=== PATIENT | female | born 1975 | race Caucasian/White ===

== ENCOUNTER 2022-08-21 10:50 | Outpatient (CLI) | payer MEDICAID, SELFPAY | END 2022-08-21 10:51 | disposition home or self-care (01) | PROVIDERS: PCP Family Medicine; Visit Provider Registered Nurse | DX: Z01.419 Encounter for gynecological examination (general) (routine) without abnormal findings (principal); R53.83 Other fatigue; R63.8 Other symptoms and signs concerning food and fluid intake; R73.03 Prediabetes; I10 Essential (primary) hypertension; E66.01 Morbid (severe) obesity due to excess calories | CPT/HCPCS: 84439; 84443; 87624; 88175 ==

== ENCOUNTER 2022-10-20 17:13 | Emergency (ER) | payer BC, SELFPAY ==
[2022-10-20 17:20] VITALS: BP 157/101; PULSE 83; RESP 18; TEMP 36.2; O2SAT 97; BMI 40.2
--- NOTE | 2022-10-20 17:37 | ED.GENADULT ---
HPI - General Adult General Time Seen by Provider: 17:37 Date Seen: 10/20/22 Chief complaint: Back Injury/Pain Stated complaint: Severe Pain in Upper Left Back Time Seen by Provider: 10/20/22 17:32 Source: patient and RN notes reviewed Mode of arrival: ambulatory Limitations: no limitations History of Present Illness HPI narrative: Patient is a 47-year-old female coming in with recurrent episodic left lower interscapular back pain. She actually left work today. 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 She actually left work today. When asked what would happen if I gave her child to hold in that arm for 5 minutes, she states she would get sharp pain in that specific area. It is been increased overnight. Last night she slept propped up a little bit. Movement hurts it. Deep breathing will hurt but it is outside the lung she feels. It is that chest wall area. It is not hurting inside with breathing. The active breathing hurts in that muscle area. She tried some tizanidine last night it did not help. She has taken some NSAIDs periodically, nothing consistent. She is not aware of any specific traumatic event that started this. She has high blood pressure, hypothyroidism. Her medication list is reviewed. When question about worries she has, any research she has done, she relays that she admits it worries her about an uncle that it had a blood cancer. He kept going in with type of pain and could not be figured out. He was eventually found to have a blood cancer. Related Data Home Medications Medication Instructions Recorded Confirmed cholecalciferol (vitamin D3) 25 1,000 unit PO DAILY 09/18/22 09/18/22 mcg (1,000 unit) capsule ferrous gluconate 324 mg (38 mg 324 mg PO DAILY 09/18/22 09/18/22 iron) tablet multivitamin (Daily Multi-Vitamin 1 tab PO QDAY 09/19/22 09/19/22 tablet) Previous Rx's Medication Instructions Recorded amlodipine 5 mg tablet 5 mg PO QDAY #90 tabs 09/19/22 levothyroxine 25 mcg tablet 25 mcg PO QDAY #90 tabs 09/19/22 (Synthroid) lisinopril 10 1 tab PO QDAY #90 tabs 09/19/22 mg-hydrochlorothiazide 12.5 mg tablet Allergies Allergy/AdvReac Type Severity Reaction Status Date / Time No Known Drug Allergies Allergy Verified 09/19/22 08:42 [facility] Medical History (Updated 10/20/22 @ 20:22 by Claire Sinclair MD) Acute gallstone pancreatitis Cyst of left ovary History of anemia (2015) History of gestational diabetes mellitus (GDM) History of herpes genitalis Hypertension Hypothyroidism Morbid obesity Sialolithiasis Urge incontinence of urine Surgical History History of 3 sections History of knee surgery (1995) History of tubal ligation (2015) Status post laparoscopic cholecystectomy (04/2018) Family History Father High blood pressure Family/Other Diabetes Social History Smoking Status: Never smoker Little interest or pleasure in doing things: several days Feeling down, depressed, or hopeless: not at all service: No Exam Const: Vital Signs, click to edit/add: Vital Signs - 24 hr 10/20/22 17:20 Temperature 97.1 F L Pulse Rate [Right Pulse Oximeter] 83 Respiratory Rate 18 Blood Pressure [Ri ght Upper Arm] 157/101 H Pulse Oximetry 97 Oxygen Delivery Me thod Room Air Course Vital Signs Vital signs: Initial Vital Signs Temperature 97.1 F L 10/20/22 17:20 Temperature Source Temporal Artery Scan 10/20/22 17:20 Pulse Rate 83 10/20/22 17:20 Respiratory Rate 18 10/20/22 17:20 Blood Pressure 157/101 H 10/20/22 17:20 Blood Pressure Mean 119 10/20/22 17:20 Blood Pressure Position Sitting 10/20/22 17:20 Pulse Oximetry 97 10/20/22 17:20 Oxygen Delivery Method 10/20/22 17:20 Vital Signs Temperature 97.1 F L 10/20/22 17:20 Pulse Rate 83 10/20/22 17:20 Respiratory Rate 18 10/20/22 17:20 Blood Pressure 157/101 H 10/20/22 17:20 Pulse Oximetry 97 10/20/22 17:20 Oxygen Delivery Method 10/20/22 17:20 Temperature 97.1 F L 10/20/22 17:20 Pulse Rate 83 10/20/22 17:20 Respiratory Rate 18 10/20/22 17:20 Blood Pressure 157/101 H 10/20/22 17:20 Pulse Oximetry 97 10/20/22 17:20 Oxygen Delivery Method 10/20/22 17:20 Medical Decision Making Lab Data Lab results reviewed: Yes I reviewed the patient's lab results Labs: Lab Results 10/20/22 10/20/22 10/20/22 Range/Units 18:22 18:22 18:22 WBC 8.52 (4.50-11.00) K/uL RBC 4.25 (4.00-5.20) m/uL Hgb 13.0 (12.0-16.0) gm/dL Hct 37.9 (33.0-51.0) % MCV 89 (80-100) fL MCH 31 (26-34) pg MCHC 34 (32-36) gm/dL RDW Coeff of Dylan 11.7 (11.5-15.5) % Plt Count 237 (140-440) K/uL Neut % (Auto) 63.7 (42.0-72.0) % Lymph % (Auto) 24.9 (20-44) % [place] % (Auto) 8.2 (0.0-11.0) % Eos % (Auto) 2.6 (0.0-7.0) % Baso % (Auto) 0.5 (0.0-3.0) % Neut # (Auto) 5.43 (1.7-7.0) K/uL Lymph # (Auto) 2.12 (0.90-2.90) K/uL [place] # (Auto) 0.70 (0.00-0.90) K/UL Eos # (Auto) 0.22 (0.00-0.50) K/uL Baso # (Auto) 0.04 (0.00-0.30) K/uL Sodium 138 (135-149) mmol/L Potassium 3.9 (3.6-5.1) mmol/L Chloride 102 (96-114) mmol/L Carbon Dioxide 29 (20-32) mmol/L BUN 27 H (5-24) mg/dL Creatinine 0.7 (0.5-1.5) mg/dL Estimated Creat Clear 86.72 Estimated GFR 108 ml/min Glucose 106 (60-115) mg/dL Lactate (0.5-1.9) mmol/L Calcium 9.3 (8.4-10.6) mg/dL Total Bilirubin 0.5 (0.1-1.5) mg/dL AST 22 (12-35) U/L ALT 22 (4-35) U/L Alkaline Phosphatase 95 (40-150) U/L Total Creatine Kinase 69 (41-117) U/L C-Reactive Protein 3.1 H (0.5-1.0) mg/dL Total Protein 7.9 (6.0-8.3) g/dL Albumin 4.6 (3.3-5.0) g/dL 10/20/22 Range/Units 18:22 WBC (4.50-11.00) K/uL RBC (4.00-5.20) m/uL Hgb (12.0-16.0) gm/dL Hct (33.0-51.0) % MCV (80-100) fL MCH (26-34) pg MCHC (32-36) gm/dL RDW Coeff of Dylan (11.5-15.5) % Plt Count (140-440) K/uL Neut % (Auto) (42.0-72.0) % Lymph % (Auto) (20-44) % [place] % (Auto) (0.0-11.0) % Eos % (Auto) (0.0-7.0) % Baso % (Auto) (0.0-3.0) % Neut # (Auto) (1.7-7.0) K/uL Lymph # (Auto) (0.90-2.90) K/uL [place] # (Auto) (0.00-0.90) K/UL Eos # (Auto) (0.00-0.50) K/uL Baso # (Auto) (0.00-0.30) K/uL Sodium (135-149) mmol/L Potassium (3.6-5.1) mmol/L Chloride (96-114) mmol/L Carbon Dioxide (20-32) mmol/L BUN (5-24) mg/dL Creatinine (0.5-1.5) mg/dL Estimated Creat Clear Estimated GFR ml/min Glucose (60-115) mg/dL Lactate 0.4 L (0.5-1.9) mmol/L Calcium (8.4-10.6) mg/dL Total Bilirubin (0.1-1.5) mg/dL AST (12-35) U/L ALT (4-35) U/L Alkaline Phosphatase (40-150) U/L Total Creatine Kinase (41-117) U/L C-Reactive Protein (0.5-1.0) mg/dL Total Protein (6.0-8.3) g/dL Albumin (3.3-5.0) g/dL Imaging Data Chest x-ray: Attestation: I have reviewed the pertinent imaging results. My impression: I do not see any acute cardiopulmonary pathology, no bony pathology on my review of this chest x-ray. Radiologist's impression: Patient: ARUN TROTTER Facility:?[facility] Patient ID:?[id number] Site Patient ID:?[id number]. Site :?[id number] Study:?XRay Chest 2V-10/20/2022 6:12:41 PM Ordering Physician:?Yahir Rangel Final Report: INDICATION: Left back pain, interscapular. TECHNIQUE: Chest 2 views. COMPARISON: None. FINDINGS: Lungs: Clear lungs. No consolidation. Pleura: No pleural effusion or pneumothorax. Heart and Mediastinum: The cardiomediastinal silhouette is normal. The vessels are unremarkable. Bones: Unremarkable. IMPRESSION: No acute cardiopulmonary disease. Dictated by Cliff Coyle MD @ 10/20/2022 6:17:41 PM (Electronic Signature) Critical Care Time Critical Care Time Critical Care Time: No Discharge Plan Discharge Clinical Impression: Pain of left scapula Patient Disposition: Home, Self-Care Condition: Stable Instructions: Thoracic Pain (ED) Additional Instructions: Your pain seems to be along the lower aspect of the scapula in the interscapular area. I believe this to be musculoskeletal in nature. You can try ice or heat, use which works better for you. Take the Toradol as prescribed, can use the Flexeril as needed. You may need more than 1 dose to say that it is or isn't working. Can supplement with Tylenol as needed while you are on the Toradol. I have provided a referral for physical therapy that you should consider using. I have also written a note to be off work if needed. I request that you follow-up in clinic, consider seeing your primary in [place] if needed in the next few days. Activity Level: Activity as Tolerated Prescriptions: No Action ferrous gluconate 324 mg (38 mg iron) tablet 324 mg PO DAILY cholecalciferol (vitamin D3) 25 mcg (1,000 unit) capsule 1,000 unit PO DAILY multivitamin [Daily Multi-Vitamin] Tablet 1 tab PO QDAY lisinopril-hydrochlorothiazide 10-12.5 mg tablet 1 tab PO QDAY Qty: 90 0RF amlodipine 5 mg tablet 5 mg PO QDAY Qty: 90 0RF levothyroxine [Synthroid] 25 mcg tablet 25 mcg PO QDAY Qty: 90 0RF Follow Up/Referrals: Daniele Hernandez MD [Primary Care Provider] - Stand Alone Forms: [employer] Info Instructions
--- NOTE | 2022-10-20 17:57 | CRLHL7_ITS ---
For Patients: As a result of the Cures Act, medical imaging exams and procedure reports are released immediately into your electronic medical record. You may view this report before your referring provider. If you have questions, please contact your health care provider. INDICATION: Left back pain, interscapular. TECHNIQUE: Chest 2 views. COMPARISON: None. FINDINGS: Lungs: Clear lungs. No consolidation. Pleura: No pleural effusion or pneumothorax. Heart and Mediastinum: The cardiomediastinal silhouette is normal. The vessels are unremarkable. Bones: Unremarkable. IMPRESSION: No acute cardiopulmonary disease. Dictated by Cliff Coyle MD @ 10/20/2022 6:17:41 PM (Electronically Signed)
[2022-10-20 18:32] LABS: Basophils Percent Auto 0.5 % (0.0-3.0); Eosinophils Percent Auto 2.6 % (0.0-7.0); Hematocrit 37.9 % (33.0-51.0); Immature Granulocytes Pct Auto 0.1 %; Lactate* 0.4 mmol/L (0.5-1.9); Lymphocytes Percent Auto 24.9 % (20-44); Mean Corpuscular HGB Conc 34 gm/dL (32-36); Mean Corpuscular Hemoglobin 31 pg (26-34); Mean Corpuscular Volume 89 fL (80-100); Monocytes Percent Auto 8.2 % (0.0-11.0); Neutrophils Absolute Auto 5.43 K/uL (1.7-7.0); Neutrophils Percent Auto 63.7 % (42.0-72.0); Platelet Count* 237 K/uL (140-440); RDW Coefficient of Variation % 11.7 % (11.5-15.5); Red Blood Count 4.25 m/uL (4.00-5.20); White Blood Count* 8.52 K/uL (4.50-11.00)
[2022-10-20 18:33] LABS: Basophils Absolute Auto 0.04 K/uL (0.00-0.30); Eosinophils Absolute Auto 0.22 K/uL (0.00-0.50); Immature Granulocytes Abs Auto 0.01 K/uL (0.00-0.30); Lymphocytes Absolute Auto 2.12 K/uL (0.90-2.90)
[2022-10-20 18:35] LABS: Slide Review Reflex No
[2022-10-20 18:48] LABS: Albumin* 4.6 g/dL (3.3-5.0); Chloride* 102 mmol/L (96-114)
[2022-10-20 18:49] LABS: Potassium* 3.9 mmol/L (3.6-5.1); Sodium* 138 mmol/L (135-149)
[2022-10-20 18:51] LABS: Alkaline Phosphatase* 95 U/L (40-150); Aspartate Amino Transferase* 22 U/L (12-35); Bilirubin Total* 0.5 mg/dL (0.1-1.5); Carbon Dioxide* 29 mmol/L (20-32); Creatinine* 0.7 mg/dL (0.5-1.5); Est. Creatinine Clearance* 86.72; Estimated Glomerular Filt Rate 108 ml/min; Total Protein* 7.9 g/dL (6.0-8.3)
[2022-10-20 18:52] LABS: Alanine Aminotransferase* 22 U/L (4-35); Blood Urea Nitrogen* 27 mg/dL (5-24); Calcium* 9.3 mg/dL (8.4-10.6); Glucose* 106 mg/dL (60-115)
[2022-10-20 18:54] LABS: C Reactive Protein* 3.1 mg/dL (0.5-1.0)
[2022-10-20] MEDS: KETOROLAC 30 MG/ML inj IM (19:24)
[2022-10-20 19:26] LABS: Creatine Kinase* 69 U/L (41-117)
== END 2022-10-20 20:39 | disposition home or self-care (01) ==
PROVIDERS: Emergency Provider Family Medicine; PCP Family Medicine
DX: M25.512 Pain in left shoulder (principal)
CPT/HCPCS: 36415; 71046; 80053; 82550; 83605; 85025; 86140; 96372; 99284; J1885

== ENCOUNTER 2022-11-12 07:58 | Outpatient (CLI) | payer BC, SELFPAY ==
--- NOTE | 2022-11-12 08:15 | CRLHL7_ITS ---
For Patients: As a result of the Century Cures Act, medical imaging exams and procedure reports are released immediately into your electronic medical record. You may view this report before your referring provider. If you have questions, please contact your health care provider. BILATERAL SCREENING MAMMOGRAM WITH COMPUTER-AIDED DETECTION TECHNIQUE: CC and MLO views were obtained. These mammographic images have been obtained using full-field digital technique. These mammographic images were interpreted with the benefit of computer-aided detection. COMPARISON FILM: 05/30/19. FINDINGS: There are scattered areas of fibroglandular density IMPRESSION: There is no radiographic evidence for malignancy. ASSESSMENT: BI-RADS Category 1: Negative RECOMMENDATION: Routine screening mammogram in 1 year. A lay language report of this examination will be provided to the patient. Daniele Ho M.D. Diagnostic Radiologist [email or web address] Transcribed: 3:44 p.mRoddy valenzuela/Dictated by: Daniele Ho MD @ 11/12/2022 9:56:00 AM (Electronically Signed)
== END 2022-11-12 07:59 | disposition home or self-care (01) ==
LOC: MAMMO 08:00
PROVIDERS: PCP Family Medicine; Visit Provider Registered Nurse
DX: Z12.31 Encounter for screening mammogram for malignant neoplasm of breast (principal)
CPT/HCPCS: 77063; 77067

== ENCOUNTER 2023-01-09 08:58 | Outpatient (CLI) | payer BC, SELFPAY | END 2023-01-09 08:59 | disposition home or self-care (01) | PROVIDERS: PCP Family Medicine; Visit Provider Family Medicine | DX: I10 Essential (primary) hypertension (principal); R53.83 Other fatigue; E66.01 Morbid (severe) obesity due to excess calories; E16.1 Other hypoglycemia; E03.9 Hypothyroidism, unspecified; F32.9 Major depressive disorder, single episode, unspecified | CPT/HCPCS: 80048; 84443 ==

== ENCOUNTER 2023-05-22 09:32 | Outpatient (CLI) | payer BC, SELFPAY | END 2023-05-22 09:33 | disposition home or self-care (01) | PROVIDERS: PCP Family Medicine; Visit Provider Family Medicine | DX: N91.2 Amenorrhea, unspecified (principal); E55.9 Vitamin D deficiency, unspecified; E66.01 Morbid (severe) obesity due to excess calories; I10 Essential (primary) hypertension; R53.83 Other fatigue; E16.1 Other hypoglycemia | CPT/HCPCS: 80048; 82306; 83001; 83002; 84443 ==

== ENCOUNTER 2023-09-09 12:24 | Outpatient (CLI) | payer BC, SELFPAY | END 2023-09-09 12:25 | disposition home or self-care (01) | LOC: NFLDREF 09-10 09:24 | PROVIDERS: PCP Family Medicine; Referring Provider Family Medicine; Visit Provider Nurse Practitioner Family | DX: R30.0 Dysuria (principal); H92.01 Otalgia, right ear; R39.15 Urgency of urination | CPT/HCPCS: 87086; 87186 ==

== ENCOUNTER 2024-03-11 21:02 | Emergency (ER) | payer OTHER, SELFPAY ==
[2024-03-11 21:12] VITALS: BP 134/87; PULSE 78; RESP 18; TEMP 36.7; O2SAT 98; BMI 42.5
--- NOTE | 2024-03-11 21:27 | ED.GENADULT ---
HPI - General Adult General Chief complaint: Extremity Pain/Injury, Lower Stated complaint: groin pain Time Seen by Provider: 03/11/24 21:19 History of Present Illness HPI narrative: Patient is a 48-year-old woman comes in today with chronic pain in the right hip . The pain is in the right hip joint with radiation down the anterior thigh. She has had no fevers no chills no night sweats no recent injuries. She was seen in her primary care office earlier in the week and had an x-ray showing osteoarthritis of the right hip. She is placed on diclofenac with limited effect. Other significant symptoms no signs of septic joint. Related Data Home Medications Medication Instructions Recorded Confirmed cholecalciferol (vitamin D3) 25 1,000 unit PO DAILY 09/18/22 03/11/24 mcg (1,000 unit) capsule escitalopram oxalate 10 mg tablet 10 mg PO DAILY 03/11/24 03/11/24 Previous Rx's Medication Instructions Recorded amlodipine 5 mg tablet 5 mg PO QDAY #90 tabs 02/19/24 bupropion HCl 150 mg 24 hr tablet, 150 mg PO QAM #14 tabs 02/19/24 extended release (Wellbutrin XL) bupropion HCl 300 mg 24 hr tablet, 300 mg PO QAM #30 tabs 02/19/24 extended release (Wellbutrin XL) diclofenac sodium 75 mg 75 mg PO BID #60 tabs 02/19/24 tablet,delayed release lisinopril 10 1 tab PO QDAY #90 tabs 02/19/24 mg-hydrochlorothiazide 12.5 mg tablet semaglutide (weight loss) 0.25 0.25 mg (0.5 mL) subcut QWEEK #2 mL 02/19/24 mg/0.5 mL subcutaneous pen injector (Wegovy) Allergies Allergy/AdvReac Type Severity Reaction Status Date / Time No Known Drug Allergies Allergy Verified 03/11/24 21:16 [facility] Medical History (Updated 03/11/24 @ 21:34 by Adam Blandon MD) Primary hypertension ?I10 - Essential (primary) hypertension (ICD-10) Keratoconus ?H18.609 - Keratoconus, unspecified, unspecified eye (ICD-10) Post menopausal syndrome ?N95.1 - Menopausal and female climacteric states (ICD-10) Vitamin D deficiency ?E55.9 - Vitamin D deficiency, unspecified (ICD-10) Major depression, single episode ?F32.9 - Major depressive disorder, single episode, unspecified (ICD-10) Urge incontinence of urine ?N39.41 - Urge incontinence (ICD-10) Sialolithiasis ?K11.5 - Sialolithiasis (ICD-10) Morbid obesity ?E66.01 - Morbid (severe) obesity due to excess calories (ICD-10) Hyperinsulinism (2011) ?E16.1 - Other hypoglycemia (ICD-10) History of herpes genitalis ?Z86.19 - Personal history of other infectious and parasitic diseases (ICD-10) History of gestational diabetes mellitus (GDM) ?Z86.32 - Personal history of gestational diabetes (ICD-10) Cyst of left ovary ?N83.202 - Unspecified ovarian cyst, left side (ICD-10) Acute gallstone pancreatitis ?K85.10 - Biliary acute pancreatitis without necrosis or infection (ICD-10) Surgical History Status post laparoscopic cholecystectomy (04/2018) ?Z90.49 - Acquired absence of other specified parts of digestive tract (ICD-10) History of tubal ligation (2015) ?Z98.51 - Tubal ligation status (ICD-10) History of knee surgery (1995) ?Z98.890 - Other specified postprocedural states (ICD-10) History of 3 sections ?Z98.891 - History of uterine scar from previous surgery (ICD-10) Family History Father High blood pressure Family/Other Diabetes Social History (Updated 01/11/23 @ 13:01 by Daniele Hernandez MD) Narrative: Lives with boyfriend of four years, they have a total of seven children between them. business and marketing teacher. Nonsmoker. Smoking Status: Never smoker Do you use any of these nicotine containing products: None Second hand tobacco smoke exposure: No How often do you have a drink containing alcohol: 2-3 times a week AUDIT-C Alcohol total score: 3 Non-prescribed substance use: marijuana (any form) Little interest or pleasure in doing things: more than half the days Feeling down, depressed, or hopeless: more than half the days service: No Exam Narrative: Exam Narrative: EXAM GENERAL: Patient appears comfortable and well. EYES: No scleral icterus. LYMPH: No supraclavicular or cervical lymphadenopathy. SKIN: Visible skin seen during exam normal or with benign process only. EXT: No dependent lower extremity pedal edema. Tenderness to palpation noted in the right anterior hip no signs of HEART: Regular rate and rhythm with no murmurs, rubs, or gallops. LUNGS: Clear to auscultation bilaterally with no crackles or wheezes. ABD: Soft, non tender, non distended. PSYCH: Good eye contact, speech is not pressured. Const: Vital Signs, click to edit/add: Vital Signs - 24 hr 03/11/24 21:12 Temperature 98.0 F Pulse Rate [Pulse Oximeter] 78 Respiratory Rate 18 Blood Pressure [Ri t Upper Arm] 134/87 Pulse Oximetry 98 Oxygen Delivery Me thod Room Air Course Course ED Course: Patient seen Andexamined. Vital Signs Vital signs: Initial Vital Signs Temperature 98.0 F 03/11/24 21:12 Temperature Source Temporal Artery Scan 03/11/24 21:12 Pulse Rate 78 03/11/24 21:12 Respiratory Rate 18 03/11/24 21:12 Blood Pressure 134/87 03/11/24 21:12 Blood Pressure Mean 102 03/11/24 21:12 Blood Pressure Position Sitting 03/11/24 21:12 Pulse Oximetry 98 03/11/24 21:12 Oxygen Delivery Method Room Air 03/11/24 21:12 Vital Signs Temperature 98.0 F 03/11/24 21:12 Pulse Rate 78 03/11/24 21:12 Respiratory Rate 18 03/11/24 21:12 Blood Pressure 134/87 03/11/24 21:12 Pulse Oximetry 98 03/11/24 21:12 Oxygen Delivery Method Room Air 03/11/24 21:12 Temperature 98.0 F 03/11/24 21:12 Pulse Rate 78 03/11/24 21:12 Respiratory Rate 18 03/11/24 21:12 Blood Pressure 134/87 03/11/24 21:12 Pulse Oximetry 98 03/11/24 21:12 Oxygen Delivery Method Room Air 03/11/24 21:12 Medical Decision Making MDM Narrative Medical decision making narrative: patient is a 48-year-old woman comes in today with right hip pain x-ray previously has shown osteoarthritis. I do think her mood symptoms are most consistent with femoral nerve impingement. Did place her on 5 day course of prednisone to give her 30 mg of IM Toradol. I recommend symptomatic treatment follow-up with her primary physician other considerations would be femoral hernia avascular necrosis of the right hip labral tear. I did recommend repeat follow-up with possible MR versus CT if symptoms persist. Discharge Plan Discharge Clinical Impression: Acute hip pain Patient Disposition: Home, Self-Care Condition: Stable Instructions: Hip Pain (ED) Additional Instructions: ice Tylenol prednisone as directed follow-up with your doctor next week. Activity Level: No Restrictions Discharge Diet: Regular Prescriptions: No Action cholecalciferol (vitamin D3) 25 mcg (1,000 unit) capsule 1,000 unit PO DAILY amlodipine 5 mg tablet 5 mg PO QDAY Qty: 90 3RF lisinopril-hydrochlorothiazide 10-12.5 mg tablet 1 tab PO QDAY Qty: 90 3RF bupropion HCl [Wellbutrin XL] 150 mg tablet extended release 24 hr 150 mg PO QAM Qty: 14 0RF bupropion HCl [Wellbutrin XL] 300 mg tablet extended release 24 hr 300 mg PO QAM Qty: 30 0RF diclofenac sodium 75 mg tablet,delayed release (DR/EC) 75 mg PO BID Qty: 60 2RF Wegovy 0.25 mg/0.5 mL pen injector 0.25 mg subcut QWEEK Qty: 2 0RF Hold Instructions: Not taking yet Rx Instructions: administer weeks 1 through 4 of therapy escitalopram oxalate 10 mg tablet 10 mg PO DAILY Follow Up/Referrals: Daniele Hernandez MD [Primary Care Provider] - Stand Alone Forms: [employer] Info Instructions
[2024-03-11] MEDS: KETOROLAC 30 MG/ML inj IM (21:38)
[2024-03-11 21:49] VITALS: BP 135/83; PULSE 80; RESP 16; TEMP 36.7
== END 2024-03-11 21:49 | disposition home or self-care (01) ==
LOC: ED 21:41
PROVIDERS: Emergency Provider Internal Medicine; PCP Family Medicine
DX: M25.551 Pain in right hip (principal)
CPT/HCPCS: 96372; 99283; 99284; J1885

== ENCOUNTER 2024-05-16 05:11 | Emergency (ER) | payer OTHER, MEDICAID, SELFPAY ==
[2024-05-16 05:22] VITALS: BP 138/112; PULSE 75; RESP 16; TEMP 36.4; O2SAT 96; BMI 40.0
--- NOTE | 2024-05-16 05:50 | CRLHL7_ITS ---
For Patients: As a result of the Century Cures Act, medical imaging exams and procedure reports are released immediately into your electronic medical record. You may view this report before your referring provider. If you have questions, please contact your health care provider. Indication: Suspect femoroacetabular impingement. Technique: AP view of the pelvis and 2 view(s) of the right hip. Comparison: 02/19/2024. Findings: Hip alignment is anatomic. There is mild right superior hip joint space narrowing . No acute fracture is identified. Decreased femoral head neck junction offset on Edwards view. Additionally, there is mild crossover sign on the right suggesting superior acetabular retroversion. Mild subchondral irregularity of the right sacroiliac joint. Visualized lower lumbar spine demonstrates mild facet arthropathy. Impression: 1. No acute fracture. 2. Decreased right femoral head neck junction offset, which can be seen in the setting of cam type femoroacetabular impingement. Additionally, there is suggestion of right superior acetabular retroversion. Right hip joint space narrowing is present. 3. Irregularity of the right sacroiliac joint may be projectional versus right sacroiliitis. Recommend dedicated sacroiliac joint radiographs. Dictated by Nenita Wells MD @ 05/16/2024 6:22:45 AM (Electronically Signed)
--- NOTE | 2024-05-16 05:55 | ED.GENADULT ---
HPI - General Adult General Chief complaint: Extremity Pain/Injury, Lower Stated complaint: RT hip thigh pain Time Seen by Provider: 05/16/24 05:29 Source: patient Mode of arrival: ambulatory Limitations: no limitations History of Present Illness HPI narrative: 49-year-old female presents in the wee hours to the emergency department with a 4 month history of right hip pain. She did have this evaluated as an add on with multiple other complaints by her primary care provider at her annual physical in January. It looks like x-rays were performed. This did show some mild arthritis changes. She was prescribed anti-inflammatory and was recommended to start physical therapy which she reports she has not been able to do as it was cost prohibitive. She states that she was then evaluated in the emergency department about a month later and was told that it was a ?pinched nerve?. She does admit that the pain does somewhat migrate. At that time she was given a shot of Toradol and was prescribed prednisone which she states did not help at all. She claims that the prednisone did not help but then states that the pain was better for quite a few weeks until this weekend. There was no specific trauma or injury but she states that the pain has been more bothersome over the past few days. She has been using NSAIDs with inadequate relief and reports that she did not sleep well last night. She has not been in contact with her primary care provider again for further direction. No prior injection, no advanced imaging. Reports pain is in the groin area, radiates down to the right thigh somewhat. She also has some pain in the right SI/posterior hip area. It is worse with weight-bearing and with certain movements. Does seem to hurt worse at night. Reports that she has tried to do some exercises to help with that but then tells me she has been resting, it is unclear what activities she is trying to do to help or which she is avoiding. She admits that coming to the ED did not make a lot of sense but she did not know what else to do and has not contacted her primary care provider or followed up with physical therapy as recommended. Past medical history is notable for obesity but states she has lost 12 lb in the last 3 months on would go be. She also reports hypertension and depression. Home meds are amlodipine bupropion and will go be. She also takes lisinopril/hydrochlorothiazide. Socially, reports that she is a nonsmoker with no unusual habits. ROS is notable for the musculoskeletal symptoms as above. Otherwise denies any other musculoskeletal, generalized, neurological or skin changes. Related Data Home Medications ?Medication ?Instructions ?Recorded ?Confirmed cholecalciferol (vitamin D3) 25 1,000 unit PO DAILY 09/18/22 03/18/24 mcg (1,000 unit) capsule escitalopram oxalate 10 mg tablet 10 mg PO DAILY 03/11/24 03/18/24 Previous Rx's ?Medication ?Instructions ?Recorded amlodipine 5 mg tablet 5 mg PO QDAY #90 tabs 02/19/24 lisinopril 10 1 tab PO QDAY #90 tabs 02/19/24 mg-hydrochlorothiazide 12.5 mg tablet flurbiprofen 100 mg tablet 100 mg PO TID #90 tabs 03/18/24 bupropion HCl 300 mg 24 hr tablet, 300 mg PO QAM #90 tabs 04/06/24 extended release (Wellbutrin XL) tirzepatide 5 mg/0.5 mL 5 mg (0.5 mL) subcut QWEEK #2 mL 04/15/24 subcutaneous pen injector (Mounjaro) cyclobenzaprine 10 mg tablet 10 mg PO HS PRN muscle spasm #30 05/16/24 tabs tramadol 50 mg tablet 50 mg PO BID PRN pain #20 tabs 05/16/24 Allergies Allergy/AdvReac Type Severity Reaction Status Date / Time No Known Drug Allergies Allergy Verified 03/18/24 10:13 [facility] Medical History Primary hypertension ?I10 - Essential (primary) hypertension (ICD-10) Keratoconus ?H18.609 - Keratoconus, unspecified, unspecified eye (ICD-10) Post menopausal syndrome ?N95.1 - Menopausal and female climacteric states (ICD-10) Vitamin D deficiency ?E55.9 - Vitamin D deficiency, unspecified (ICD-10) Major depression, single episode ?F32.9 - Major depressive disorder, single episode, unspecified (ICD-10) Urge incontinence of urine ?N39.41 - Urge incontinence (ICD-10) Sialolithiasis ?K11.5 - Sialolithiasis (ICD-10) Morbid obesity ?E66.01 - Morbid (severe) obesity due to excess calories (ICD-10) Hyperinsulinism (2012) ?E16.1 - Other hypoglycemia (ICD-10) History of herpes genitalis ?Z86.19 - Personal history of other infectious and parasitic diseases (ICD-10) History of gestational diabetes mellitus (GDM) ?Z86.32 - Personal history of gestational diabetes (ICD-10) Cyst of left ovary ?N83.202 - Unspecified ovarian cyst, left side (ICD-10) Acute gallstone pancreatitis ?K85.10 - Biliary acute pancreatitis without necrosis or infection (ICD-10) Surgical History Status post laparoscopic cholecystectomy (04/2018) ?Z90.49 - Acquired absence of other specified parts of digestive tract (ICD-10) History of tubal ligation (2015) ?Z98.51 - Tubal ligation status (ICD-10) History of knee surgery (1995) ?Z98.890 - Other specified postprocedural states (ICD-10) History of 3 sections ?Z98.891 - History of uterine scar from previous surgery (ICD-10) Family History Father High blood pressure Family/Other Diabetes Social History Narrative: Lives with boyfriend of four years, they have a total of seven children between them. high school foreign language teacher. Nonsmoker. Smoking Status: Never smoker Do you use any of these nicotine containing products: None Second hand tobacco smoke exposure: No How often do you have a drink containing alcohol: 2-3 times a week AUDIT-C Alcohol total score: 3 Non-prescribed substance use: marijuana (any form) Little interest or pleasure in doing things: more than half the days Feeling down, depressed, or hopeless: more than half the days service: No Exam Const: Vital Signs, click to edit/add: Vital Signs - 24 hr 05/16/24 05:22 Temperature 97.6 F Pulse Rate [Pulse Oximeter] 75 Respiratory Rate 16 Blood Pressure [Ri ght Upper Arm] 138/112 H Pulse Oximetry 96 Oxygen Delivery Me thod Room Air Documenting provider has reviewed patient's vital signs: yes Common normals: no apparent distress and alert General appearance: cooperative and comfortable HENMT: Common normals: normocephalic Head and scalp: normocephalic Mouth: oral and palatal mucosa normal Eye: Common normals: conjunctivae normal General eye: normal appearance of both eyes Conjunctiva: conjunctiva(e) normal Resp: Common normals: normal respiratory effort Effort & inspection: able to speak in complete sentences Back & Pelvis: Other: Back with overall exaggeration of lumbar lordosis she does have some chronic dipping of the right shoulder suggestive of computer and desk type work. This can straighten with proper repositioning. No point bony tenderness to the spine, SI or paraspinal muscles. Does have difficulty with extension but this mostly seems positional, flexion is normal and does not increase her pain. Extremity: Common normals: normal capillary refill Other: Left hip with excellent range of motion, no tenderness. Right hip exam is a bit difficult mainly due to her pain. She really guards and resists movement of the hip especially in external rotation. There is no point bony tenderness to palpation, no hernia. There is some tenderness over the psoas tendon also. Overall does seem like there is arthritic type tenderness to rotation. No tenderness over the greater trochanter. Palpation of the thigh is otherwise normal. Neuro: Sensorium/orientation: alert Speech: speech normal Motor exam: strength 5/5 throughout and no movement abnormalities noted Psych: Common normals: speech normal Activity/motor behavior: appropriate eye contact Speech: normal speech Other: A little tearful but insight seems fair. Judgment fair. Skin: Common normals: no rashes or lesions noted General skin exam: no rashes or lesions noted Course Course ED Course: 49-year-old female with nontraumatic right hip area pain. Differential diagnosis includes osteoarthritis of the hip, labral tear, avascular necrosis, psoas tendinitis, hernia, radiculopathy from lumbar spine disease, other pelvic disorders. Back exam is not suggestive of acute pathology today though this certainly could have been the case in prior visits. Physician note from January an ED note from March are reviewed. Prior imaging is reviewed. I a.m. sensing some impingement will add Edwards view and repeat x-ray. Would likely benefit from ortho consult and advanced imaging which will be prohibitive during non business hours in the emergency department. Reevaluation(s) Time of Reevaluation #1: 06:40 Reevaluation #1: Reviewed x-ray findings with patient. Reviewed once again that she did not find any benefit from prednisone, will not offer additional course of steroids. I do think that there is some degree of hip impingement going on causing her pain. I do not think that it is primarily a back problem today. I suspect the reason that she is having so much difficulty navigating management in this is because she did not go through with physical therapy and her primary care provider is unaware than that she has still been struggling. She reports that she has an appointment pending in 4 days. I have placed a referral to Orthopedics, and have also provided her the phone number to call and self schedule. She may benefit from advanced imaging or potentially an injection. I also let her know that she would still benefit from physical therapy as well and should look into finding a provider that is better covered by her insurance. In the interim I encouraged her to continue on her NSAIDs and I have encouraged Tylenol 1000 mg 4 times daily for the pain. I have also given her a very limited supply of tramadol and a dose here in the ED. She will also have Flexeril to use at bedtime as needed for severe pain that is causing insomnia. Alarm symptoms reviewed that would warrant ED presentation. Vital Signs Vital signs: Initial Vital Signs Temperature 97.6 F 05/16/24 05:22 Temperature Source Temporal Artery Scan 05/16/24 05:22 Pulse Rate 75 05/16/24 05:22 Respiratory Rate 16 05/16/24 05:22 Blood Pressure 138/112 H 05/16/24 05:22 Blood Pressure Mean 120 H 05/16/24 05:22 Blood Pressure Position Sitting 05/16/24 05:22 Pulse Oximetry 96 05/16/24 05:22 Oxygen Delivery Method Room Air 05/16/24 05:22 Vital Signs Temperature 97.6 F 05/16/24 05:22 Pulse Rate 75 05/16/24 05:22 Respiratory Rate 16 05/16/24 05:22 Blood Pressure 138/112 H 05/16/24 05:22 Pulse Oximetry 96 05/16/24 05:22 Oxygen Delivery Method Room Air 05/16/24 05:22 Temperature 97.6 F 05/16/24 05:22 Pulse Rate 75 05/16/24 05:22 Respiratory Rate 16 05/16/24 05:22 Blood Pressure 138/112 H 05/16/24 05:22 Pulse Oximetry 96 05/16/24 05:22 Oxygen Delivery Method Room Air 05/16/24 05:22 Medications Administered Medications: Discontinued Medications Generic Name Dose Route Start Last Admin Trade Name Michael PRN Reason Stop Dose Admin Tramadol HCl 50 mg 05/16/24 06:30 05/16/24 06:37 Tramadol Hcl 50 Mg Tablet PO 05/16/24 06:31 50 mg ONCE ONE Administration Medical Decision Making Imaging Data Right hip x-ray: Attestation: I have reviewed the pertinent imaging results. My impression: Some mild spurring and osteoarthritic changes, lateral views are suggestive of some impingement Radiologist's impression: Impression: 1. No acute fracture. 2. Decreased right femoral head neck junction offset, which can be seen in the setting of cam type femoroacetabular impingement. Additionally, there is suggestion of right superior acetabular retroversion. Right hip joint space narrowing is present. 3. Irregularity of the right sacroiliac joint may be projectional versus right sacroiliitis. Recommend dedicated sacroiliac joint radiographs. Discharge Plan Discharge Clinical Impression: Chronic hip pain, Femoroacetabular impingement of right hip Patient Disposition: Home, Self-Care Condition: Stable Instructions: Hip Impingement (ED) Additional Instructions: As we discussed, it can be difficult to tell if your pain is starting from your lower back, your pelvis or the hip joint. My impression today is that the he pain is indeed coming from the hip joint itself. I did an additional view on your x-ray to look for something called impingement and your x-ray is suggestive of this. An MRI would be better and could also tell me if there is a cartilage tear or other abnormalities within the hip but this is not available to us in emergency department. Often, insurance will not pay for 1 prescribed by your primary care provider unless you have completed a course of physical therapy as well. At this point, since it has been going on for so long, I would recommend that we refer you to orthopedics for a 2nd opinion. Please call their office to schedule the appointment at [phone] Please keep taking the anti-inflammatory medicine in the meantime. I know it is not enough to completely treat your pain but it is going to help somewhat. I would also recommend Tylenol 1000 mg every 6 hours, round the clock to help with pain as well. I will give you prescription for Flexeril which is a muscle relaxant to use at bedtime. Often, these types of pains are worse with activity but then also randomly at night. The muscle relaxant may make you sleepy so try to save it for nighttime only. I will also give you a very limited supply of tramadol, a narcotic pain medication. Use this if you have maxed out your Tylenol and anti-inflammatory medicines and the pain is still very bothersome. You may find benefit from using a cane to help with ambulation when the pain is bothersome. If you are able to find in network physical therapist, I would also recommend pursuing that. Please keep your pending appointment with your primary care provider to touch base on what we have set up and update him on my findings. Activity Level: Activity as Tolerated Discharge Diet: Regular Prescriptions: New cyclobenzaprine 10 mg tablet 10 mg PO HS PRN (Reason: muscle spasm) Qty: 30 1RF Rx Instructions: At bedtime as needed for muscle spasm, may cause drowsiness tramadol 50 mg tablet 50 mg PO BID PRN (Reason: pain) Qty: 20 0RF Rx Instructions: Use sparingly once you have maxed out Tylenol and NSAIDs and pain is still very bothersome No Action flurbiprofen 100 mg tablet 100 mg PO TID Qty: 90 2RF cholecalciferol (vitamin D3) 25 mcg (1,000 unit) capsule 1,000 unit PO DAILY amlodipine 5 mg tablet 5 mg PO QDAY Qty: 90 3RF lisinopril-hydrochlorothiazide 10-12.5 mg tablet 1 tab PO QDAY Qty: 90 3RF escitalopram oxalate 10 mg tablet 10 mg PO DAILY bupropion HCl [Wellbutrin XL] 300 mg tablet extended release 24 hr 300 mg PO QAM Qty: 90 1RF Mounjaro 5 mg/0.5 mL pen injector 5 mg subcut QWEEK Qty: 2 0RF Follow Up/Referrals: Jesse Monet MD [Staff Physician] - 7 Days (First available ortho) Daniele Hernandez MD [Primary Care Provider] - Stand Alone Forms: [employer] Info Instructions
--- OUTSIDE RECORDS SUMMARY | 2024-05-16 05:55 | XMS_ITS | Clinical Summary ---
Author Organization [facility] Address [place], [place] [address] Care Team Providers Care Labor Conciliator Name Role Phone Pcp, No Primary Care Provider Unavailabl e Allergies No known active allergies Medications No known medications Active Problems Problem Noted Date Diagnosed Date Antepartum placenta previa w ithout hemorrhage in second trimester 06/30/2015 Overview: Complete FINDINGS: Sonographic imaging demonstrates a single living intrauterine gestation. Fetus demonstrates a regular cardiac rate of 144 beats per minute. Fetus has a transverse orientation and transverse lie. There is a complete placenta previa. The placenta extends along the anterior and posterior high and towards the right. Amniotic fluid volume appears normal. Amniotic fluid index is 12.0 cm. The cervix is closed and measures 2.9 cm in length. The composite ultrasound gestational age is calculated at 20 weeks 0 days with an estimated sonographic due date of 11/16/15. The estimated weight is 333 grams which lies at the 49 percentile. The following biometric measurements were obtained: Biparietal diameter: 4.6 cm / 20 weeks 0 days 41% Head circumference: 16.5 cm / 19 weeks 2 days 9% Abdominal circumference: 15.1 cm / 20 weeks 3 days 51% Femur length: 3.2 cm / 20 weeks 1 day 39% On anatomic survey, there is a normal appearance of the cerebral ventricles, cisterna magna and cerebellum. The nose, lips, and facial profile appear normal. The spine was not adequately visualized. The four-chamber view was not adequately visualized. The left and right ventricular outflow tracts appear normal. diaphragm, stomach and bladder appear normal. The kidneys are not adequately visualized. There is a normal three-vessel cord and cord insertion site. The four extremities appear normal. IMPRESSION: Normal OB ultrasound exam with concordance of clinical and sonographic dating. No intrinsic abnormalities noted on anatomic survey. However, the spine, 4 chamber heart view and kidneys are not adequately visualized. Dictated by Micheline Misti @ Jun 29 2015 3:59PM Antepartum placenta previa w ithout hemorrhage in second trimester 06/25/2015 Overview: Complete previa. Would recommend ultrasound in last month of consider delivery at 36-37 weeks 37 weeks is stable and no bleeding. Planning repeat Hyperinsulinemia 12/30/2011 Pre-diabetes 12/15/2008 Overview: In regards to her prediabetes, we discussed this at length. Her risk for type 2 diabetes is nearly certain in the next 10 years given her findings of acanthosis, prediabetes, obesity, and a recent history of gestational diabetes. Weight loss was encouraged. We discussed a structured exercise program. Assuming she is still in the prediabetic range, I would recommend going back on metformin. She needs a follow up for her prediabetes every six months with either A1c or a fasting glucose. This patient would be an excellent candidate for a GLP-1 agonist at the point at which she develops diabetes if she has not lost a substantial amount of weight. She would like to see me back in six months' time. Unspecified hypothyroidism 11/24/2008 Overview: ASSESSMENT AND PLAN: A 39-year-old female with a history of slightly elevated TSH values. Her subclinical hypothyroidism was diagnosed at the time at which the [facility] reference range for TSH had fallen to an upper limit of normal, below 2.5. That range has now changed and her thyroid levels fall within that range. Her TSH is about what I would expect it to be given her obesity. I will recheck thyroid function studies as above. If she has a positive TPO antibody with a TSH greater than 5, I would consider putting her back on levothyroxine. The likelihood of this is low. Immunizations Name Administration Dates Next Due MMR 02/06/1993 Tdap 09/17/2015,02/22/2010 Family History Medical History Relation Name Comments Good Health Brother one Good Health Father Hyperlipidemia Father on medication Diabetes Maternal Aunt Diabetes Maternal Grandfather Cancer Maternal Grandmother ?primar y; discovered with extensive metasteses Good Health Mother Good Health Sister two Relation Name Status Comments Brother Father Maternal Aunt Maternal Grandfather Maternal Grandmother Mother Sister Social History Tobacco Use Types Packs/Day Years Used Date Smoking Tobacco: Never Smokeless Tobacco: Never Tobacco Cessation:Counseling Given: Yes Alcohol Use Standard Drinks/Week Comments Yes 0 (1 standard drink = 0.6 oz pur e alcohol) socially PHQ-2 Answer Date Recorded PHQ-2 TOTAL SCORE 0 08/05/2021 Social Connections Answer Date Recorded Frequency of Communication with Friends and Fami ly Not on file 11/02/2021 Financial Resource Strain Answer Date R ecorded Difficulty of Paying Living Expenses Not on file 11/02/2021 Difficulty of Paying Living Expenses Not on file 11/02/2021 Sex and Gender Information Value Date Recorded Sex Assigned at Not on file Gender Identity Not on file Sexual Orientation Not on file Obstetrics History Para Term AB IAB SAB Ectopic Multiple Livin g Live Births 3 2 2 2 Date Outcome GA Total Labor Labor/2nd/3rd Weight Sex Type Anes PTL Jemima A1 A5 Name Clin 2 Term 40w 0d 3.91 kg (8 lb 10 oz) F CS-Un spec Comments:failure to de cend 7 Term 40w 0d 3.8 kg (8 lb 6 oz) M CS-Un spec Comments:Gestational d iabetes Last Filed Vital Signs Vital Sign Reading Time Taken Comments Blood Pressure 180/100 08/05/2021 9:45 AM CDT man ual Pulse 80 08/05/2021 9:45 AM CDT Temperature 36.8 ??C (98.3 ??F) 08/05/2021 9:05 AM CD T Respiratory Rate 18 06/25/2015 3:21 PM CDT Oxygen Saturation 98% 08/05/2021 9:05 AM CDT Inhaled Oxygen Concentration - - Weight 110.7 kg (244 lb) 06/25/2015 3:21 PM CDT Height 162 cm (5' 3.78) 04/02/2015 8:27 AM CDT Body Mass Index 42.17 04/02/2015 8:27 AM CDT Plan of Treatment Health Maintenance Due Date Last Done Comments BMI (ht and wt on same day) for age 18+ 1994 Colonoscopy through age 75 2021 Lipids for age 45-75 2021 12/26/2013, 12/26/2011, 08/17/2009, Additional history exists Mammogram for age 45-75 2021 Depression screening for age 12+ 08/05/2022 08/05/2021, 08/05/2021 COVID-19 vaccine series ( season) 2023 06/26/2021, 06/05/2021 Influenza for age 9-49 07/03/2024 Pap test for age 21-65 08/21/2025 , 08/21/2022, 01/27/2018, Additional history exists Tetanus booster 09/17/2025 09/17/2015, 02/22/2010 HIV for age 15-65 Completed 2015, , 12/20/2010 Hepatitis C screening for age 18-79 Completed 2015, 05/31/2012 Tdap Completed 09/17/2015, 02/22/2010 Pneumococcal series for age 6-64 Aged Out No longer eligible based on patient's age to complete this topic Procedures Procedure Name Priority Date/Time Associated Diagnosis Comments HPV THIN PREP Routine 08/21/2022 11:00 AM CDT ANTI HIV 1/2 Routine 2015 9:33 AM CDT ANTI HCV Routine 2015 9:33 AM CDT LIPID PANEL Routine 12/26/2013 9:01 AM G[facility] C[facility]IER Screening cholesterol level from Last 3 Months or Most Recently Relevant to Health Maintenance Results * HPV HIGH RISK (08/21/2022 11:00 AM CDT) TYPE 16 Negative Negative 08/27/2022 2:27 PM CDT [facility] TYPE 18 Negative Negative 08/27/2022 2:27 PM CDT [facility] OTHER HIGH RISK TYPES Negative Negative 08/27/2022 2:27 PM CDT [facility] Other (Cervical) 08/21/2022 11:00 AM CDT 08/26/2022 2:30 PM CDT [facility] - 08/27/2022 2:27 PM CDT HPV types 16, 18, 31, 33, 35, 39, 45, 51, 52, 56, 58, 59, 66 and 68 DNA were undetectable or below the pre-set threshold. Methodology: Deepa Ele 4800 HPV Test Eliz Goins NP [facility] [address] [place] [address], * ANTI HCV (2015 9:33 AM CDT) HEPATITIS C ANTIBODY Non-Reacti ve Non-Reacti ve 2015 5:02 PM CDT [facility] Blood specimen (specimen) BLOOD SPECIMEN / Unknown Venipuncture / Unknown 2015 9:33 AM CDT 2015 9:33 AM CDT [facility] - 2015 5:02 PM CDT Antibodies to HCV not detected; does not exclude the possibility of exposure to HCV. Cindy DALEY SEND OUTS Performing Organization Address City/[facility]/ZIP Co de Phone Number [facility] [address] [place] [address], [place] * ANTI HIV 1/2 (2015 9:33 AM CDT) HIV-1/HIV-2 ANTIBODY Non-Reacti ve Non-Reacti ve 2015 4:29 PM CDT [facility] Blood specimen (specimen) BLOOD SPECIMEN / Unknown Venipuncture / Unknown 2015 9:33 AM CDT 2015 9:33 AM CDT [facility] - 2015 4:29 PM CDT HIV-1 p24 and HIV-1/HIV-2 Ab not detected Cindy DALEY SEND OUTS [facility] [address] [place] [address], [place] * (ABNORMAL) LIPID PANEL (12/26/2013 9:01 AM GAMBLING CASHIER) CHOLESTEROL,TOTAL 153 100 - 199 mg/dL 12/26/2013 9:52 AM [facility] TRIGLYCERIDES 207(H) <150 mg/dL 12/26/2013 9:52 AM [facility] HDL CHOLESTEROL 43 >40 mg/dL 4 9:52 AM [facility] NON-HDL CHOLESTEROL 110 <145 mg/dl 12/26/2013 9:52 AM [facility] CHOL/HDL RATIO 3.56 <4.50 12/26/2013 9:52 AM [facility] LDL CHOLESTEROL 69 <=130 mg/dL 12/26/2013 9:52 AM [facility] PATIENT STATUS FASTING 12/26/2013 9:52 AM [facility] Blood specimen (specimen) BLOOD SPECIMEN / Unknown Venipuncture / Unknown 12/26/2013 9:01 AM [facility]IER 12/26/2013 9:01 AM G[facility]BLING CASHIER Cindy DALEY [facility] [address] [place] [address] from Last 3 Months or Most Recently Relevant to Health Maintenance Care Teams Labor Conciliator Relationship Specialty Start Date End Date Pcp, No . PCP - General 10/08/18
[2024-05-16] MEDS: TRAMADOL HCL 50 MG TABLET PO (06:37)
== END 2024-05-16 06:55 | disposition home or self-care (01) ==
PROVIDERS: Emergency Provider Family Medicine; PCP Family Medicine
DX: M24.851 Other specific joint derangements of right hip, not elsewhere classified (principal)
CPT/HCPCS: 73502; 99283; A9270

== ENCOUNTER 2024-05-31 07:04 | Outpatient (CLI) | payer OTHER, MEDICAID, SELFPAY ==
--- OUTSIDE RECORDS SUMMARY | 2024-05-31 07:06 | XMS_ITS | Clinical Summary ---
Author Organization [employer] [facility] Address [place], [place] [address] Care Team Providers Care Phlebotomist Prn Name Role Phone Pcp, No Primary Care [...] CDT LIPID PANEL Routine 12/26/2013 9:01 AM [employer] Screening cholesterol level from Last 3 Months or Most Recently Relevant to Health Maintenance Results * HPV HIGH RISK (08/21/2022 11:00 AM CDT) TYPE 16 Negative Negative 08/27/2022 2:27 PM CDT [facility] TYPE 18 Negative Negative 08/27/2022 2:27 PM CDT [facility] OTHER HIGH RISK TYPES Negative Negative 08/27/2022 2:27 PM CDT [facility] Other (Cervical) 08/21/2022 11:00 AM CDT 08/26/2022 2:[address] [facility] - 08/27/2022 2:27 PM CDT HPV types 16, 18, 31, 33, 35, 39, 45, 51, 52, 56, 58, 59, 66 and 68 DNA were undetectable or below the pre-set threshold. Methodology: Deepa Ele 4800 HPV Test Eliz Goins NP MICROBIOLOGY [facility] [address] [place] [address], * ANTI HCV (2015 9:33 AM CDT) HEPATITIS C ANTIBODY Non-Reacti ve Non-Reacti ve 2015 5:02 PM CDT [facility] Blood specimen (specimen) BLOOD SPECIMEN / Unknown Venipuncture / Unknown 2015 9:33 AM CDT 2015 9:33 AM CDT [facility] - 2015 5:02 PM CDT Antibodies to HCV not detected; does not exclude the possibility of exposure to HCV. Cindy DALEY SEND OUTS Performing Organization Address City/[facility]/ZIP Co de Phone Number [facility] [address] [place] [address], [place] * ANTI HIV 1/2 (2015 9:33 AM CDT) HIV-1/HIV-2 ANTIBODY Non-Reacti ve Non-Reacti ve 2015 4:29 PM CDT [facility] Blood specimen (specimen) BLOOD SPECIMEN / Unknown Venipuncture / Unknown 2015 9:33 AM CDT 2015 9:[address] [facility] - 2015 4:29 PM CDT HIV-1 p24 and HIV-1/HIV-2 Ab not detected Cindy DALEY SEND OUTS [facility] [address] [place] [address], [place] * (ABNORMAL) LIPID PANEL (12/26/2013 9:01 AM [employer]) CHOLESTEROL,TOTAL 153 100 - 199 mg/dL 12/26/2013 9:52 AM [facility] TRIGLYCERIDES 207(H) <150 mg/dL 12/26/2013 9:52 AM [facility] HDL CHOLESTEROL 43 >40 mg/dL 4 9:52 AM [facility] NON-HDL CHOLESTEROL 110 <145 mg/dl 12/26/2013 9:52 AM [facility] CHOL/HDL RATIO 3.56 <4.50 12/26/2013 9:52 AM [facility] LDL CHOLESTEROL 69 <=130 mg/dL 12/26/2013 9:52 AM [facility] PATIENT STATUS FASTING 12/26/2013 9:52 AM [facility] Blood specimen (specimen) BLOOD SPECIMEN / Unknown Venipuncture / Unknown 12/26/2013 9:01 AM [employer] 12/26/2013 9:01 AM [employer] Cindy DALEY CHEMISTRY [facility] [address] [place] [address] from Last 3 Months or Most Recently Relevant to Health Maintenance Care Teams Phlebotomist Prn Relationship Specialty Start Date End Date Pcp, No . PCP - General 10/08/18
--- NOTE | 2024-05-31 07:15 | MR_ITS ---
[facility] [address] [facility] [address] Phone:?[phone] Fax:?[phone] Referring Physician Information: Jesse Monet M.D. [address] [facility] [address] Phone:?[phone] Fax:?[phone] Patient:Suleman Knight D.O.B:?1975 Sex:?Female Phone:?[phone] [facility] MRN:?[id number] Exam Date:?05/31/2024 EXAM: MRI of the RIGHT HIP, without contrast CLINICAL HISTORY: Ongoing right hip pain. COMPARISONS: Plain radiographs 05/16/2024. Plain radiographs 02/19/2024. TECHNICAL: MR sequences of the right hip: Axials: PD FS Axial oblique: PD Coronals: PD, T2 Coronal pelvis: T1 and STIR Sagittals: PD and T2 CONTRAST: None SEDATION: None This study was not made available for me to review until approximately 11:00 AM 06/07/2024. FINDINGS: Pelvis osseous structures: Sacrum: No fracture or destructive osseous lesion of the imaged portions of the sacrum. Sacroiliac joints: Extensive sclerotic changes surrounding the anteroinferior portion of the left sacroiliac joint greater on the iliac side and much milder subchondral sclerotic changes and mild subchondral edema-like signal surrounding the anteroinferior portion of the right sacroiliac joint. Pubic rami: Unremarkable. Symphysis pubis: There is no evidence of acute osteitis pubis. Labrum: There is ill-defined complex tearing of the right hip labrum from the 1 o'clock position anterosuperiorly through 3 o'clock position anteriorly best seen on the axial oblique and sagittal sequences. Hip joint: Moderate right hip joint effusion with substantial synovitis. Marked right hip osteoarthritic changes include extensive near full-thickness and full-thickness chondral loss over most of the superior portions of the acetabulum and femoral head and extensive subchondral cystic changes/subchondral edema-like signal throughout the right acetabulum greatest anterosuperiorly. Proximal femur: No fracture, osseous stress injury, avascular necrosis, or suspicious bone marrow signal abnormality is seen. There is right femoral cam morphology with a femoral alpha angle of 70 degrees at the 1:30 o'clock position anterosuperiorly measured on coronal series 5 image 13 Acetabulum: Coverage: Right lateral center edge (CE) angle measures approximately 35? correcting for coronal pelvic tilt, midline coronal series 4 image 12. Ligamentum teres: Ill-defined partial tearing of the right hip ligamentum teres. Myotendinous structures: Gluteus abductors: The gluteus minimus and medius tendons are unremarkable. Rectus abdominis-adductor longus aponeurosis, adductors, and rectus abdominis: Unremarkable. Hamstrings: Unremarkable. Flexors: The iliopsoas and rectus femoris tendons are intact. Quadratus femoris muscle: There is edema-like signal within the right quadratus femoris muscle. The right quadratus femoris space measures 7 mm. Piriformis muscle: Unremarkable. Gluteal aponeurotic fascia and IT band: Unremarkable. Pelvic soft tissues: There is colonic diverticulosis without evidence of diverticulitis on the images provided. A probable left ovarian cyst is incidentally noted. IMPRESSION: 1. Marked right hip osteoarthritic changes include extensive near full-thickness and full-thickness chondral loss over most of the superior portions of the acetabulum and femoral head and extensive subchondral cystic changes/subchondral edema-like signal throughout the right acetabulum greatest anterosuperiorly. Ill-defined complex tearing of the right hip labrum from the 1 o'clock position anterosuperiorly through 3 o'clock position anteriorly. 2. Right femoral cam morphology. 3. Moderate right hip joint effusion with substantial synovitis. 4. Edema-like signal within the right quadratus femoris muscle and a narrowed right quadratus femoris space; correlate with any clinical signs/symptoms of ischiofemoral impingement. 5. Extensive sclerotic changes surrounding the anteroinferior portion of the left sacroiliac joint greater on the iliac side and much milder subchondral sclerotic changes and mild subchondral edema-like signal surrounding the anteroinferior portion of the right sacroiliac joint. Findings may reflect degenerative changes although sequelae of chronic inflammatory sacroiliitis are not excluded. No convincing evidence of acute inflammatory sacroiliitis. 6. Colonic diverticulosis without evidence of diverticulitis. 7. No fracture, osseous stress injury, or tendinous pathology of the right hip. RCB Electronically signed on 06/07/2024 11:19:00 AM by Carlos Bonilla M.D.
== END 2024-05-31 07:05 | disposition home or self-care (01) ==
LOC: MRI 07:04
PROVIDERS: PCP Family Medicine; Visit Provider Orthopaedic Surgery Sports Medicine
DX: M25.551 Pain in right hip (principal); S73.102A Unspecified sprain of left hip, initial encounter; M25.452 Effusion, left hip; M16.11 Unilateral primary osteoarthritis, right hip
CPT/HCPCS: 73721

== ENCOUNTER 2024-07-06 08:04 | Outpatient (CLI) | payer OTHER, MEDICAID, SELFPAY ==
--- OUTSIDE RECORDS SUMMARY | 2024-07-06 08:06 | XMS_ITS | Clinical Summary ---
Author Organization [facility] Address [place], [place] [address] Care Team Providers Care Partner Alliance Manager Name Role Phone Pcp, No Primary Care [...] 08/05/2021, 08/05/2021 COVID-19 vaccine series ( season) 2024 06/26/2021, 06/05/2021 Influenza for age 9-49 07/03/2024 [...] CDT LIPID PANEL Routine 12/26/2013 9:01 AM UTILITIES ESTIMATOR AND DRAFTER Screening cholesterol level from Last 3 Months or Most Recently Relevant to Health Maintenance Results * HPV HIGH RISK (08/21/2022 11:00 AM CDT) TYPE 16 Negative Negative 08/27/2022 2:27 PM CDT [facility] TYPE 18 Negative Negative 08/27/2022 2:27 PM CDT [facility] OTHER HIGH RISK TYPES Negative Negative 08/27/2022 2:27 PM CDT [facility] Other (Cervical) 08/21/2022 11:00 AM CDT 08/26/2022 2:30 PM CDT [facility] - 08/27/2022 2:27 PM CDT HPV types 16, 18, 31, 33, 35, 39, 45, 51, 52, 56, 58, 59, 66 and 68 DNA were undetectable or below the pre-set threshold. Methodology: Deepa Ele 4800 HPV Test Eliz Goins NP MICROBIOLOGY [facility] [address] [place] [address], * ANTI HCV (2015 9:33 AM CDT) HEPATITIS C ANTIBODY Non-Reacti ve Non-Reacti ve 2015 5:02 PM CDT [facility] Blood specimen (specimen) BLOOD SPECIMEN / Unknown Venipuncture / Unknown 2015 9:33 AM CDT 2015 9:33 AM CDT [facility] - 2015 5:02 PM CDT Antibodies to HCV not detected; does not exclude the possibility of exposure to HCV. Cindy DALEY SEND OUTS Performing Organization Address City/[facility]/ZIP Co de Phone Number [facility] [address] [place] [address], [place] * ANTI HIV 1/2 (2015 9:33 AM CDT) HIV-1/HIV-2 ANTIBODY Non-Reacti ve Non-Reacti ve 2015 4:29 PM CDT [facility] Blood specimen (specimen) BLOOD SPECIMEN / Unknown Venipuncture / Unknown 2015 9:33 AM CDT 2015 9:33 AM CDT [facility] - 2015 4:29 PM CDT HIV-1 p24 and HIV-1/HIV-2 Ab not detected Cindy DALEY SEND OUTS [facility] [address] [place] [address], [place] * (ABNORMAL) LIPID PANEL (12/26/2013 9:01 AM UTILITIES ESTIMATOR AND DRAFTER) CHOLESTEROL,TOTAL 153 100 - 199 mg/dL 12/26/2013 9:52 AM [facility] TRIGLYCERIDES 207(H) <150 mg/dL 12/26/2013 9:52 AM [facility] HDL CHOLESTEROL 43 >40 mg/dL 4 9:52 AM [facility] NON-HDL CHOLESTEROL 110 <145 mg/dl 12/26/2013 9:52 AM [facility] CHOL/HDL RATIO 3.56 <4.50 12/26/2013 9:52 AM [facility] LDL CHOLESTEROL 69 <=130 mg/dL 12/26/2013 9:52 AM [facility] PATIENT STATUS FASTING 12/26/2013 9:52 AM [facility] Blood specimen (specimen) BLOOD SPECIMEN / Unknown Venipuncture / Unknown 12/26/2013 9:01 AM UTILITIES ESTIMATOR AND DRAFTER 12/26/2013 9:01 AM UTILITIES ESTIMATOR AND DRAFTER Cindy DALEY CHEMISTRY [facility] [address] [place] [address] from Last 3 Months or Most Recently Relevant to Health Maintenance Care Teams Partner Alliance Manager Relationship Specialty Start Date End Date Pcp, No . PCP - General 10/08/18
--- NOTE | 2024-07-06 08:15 | CRLHL7_ITS ---
For Patients: As a result of the Century Cures Act, medical imaging exams and procedure reports are released immediately into your electronic medical record. You may view this report before your referring provider. If you have questions, please contact your health care provider. Indication: Right hip pain Comparison: MRI 05/31/2024 Procedure : Informed consent was obtained. The site was marked. Time-out was performed. The skin of the right hip was cleansed with ChloraPrep. A sterile drape was placed. 8 cc of 1 percent lidocaine was administered for superficial anesthesia. Subsequently a 22 gauge spinal needle was introduced into the right hip joint under intermittent fluoroscopic guidance. Injection of 7 cc of 1 percent lidocaine and 2 cc 40 milligrams/cc Depo-Medrol then performed into the right hip joint. The needle was removed and hemostasis achieved with direct pressure. A dressing was placed. The patient tolerated the procedure well without immediate complication and was immediately sent to MRI for imaging. Total fluoroscopy time 12 seconds. Impression: Successful fluoroscopically guided right hip injection with 80 milligrams of Depo-Medrol. Dictated by Daniele Ho MD @ 07/06/2024 10:02:45 AM (Electronically Signed)
== END 2024-07-06 08:05 | disposition home or self-care (01) ==
LOC: RAD 08:05
PROVIDERS: PCP Family Medicine; Visit Provider Physician Assistant Surgical
DX: M25.551 Pain in right hip (principal); M16.11 Unilateral primary osteoarthritis, right hip
CPT/HCPCS: 20610; 77002; Q9966

== ENCOUNTER 2024-12-07 08:36 | Outpatient (CLI) | payer BC, SELFPAY | END 2024-12-07 08:37 | disposition home or self-care (01) | PROVIDERS: PCP Family Medicine; Visit Provider Family Medicine | DX: I10 Essential (primary) hypertension (principal); Z01.818 Encounter for other preprocedural examination; Z13.6 Encounter for screening for cardiovascular disorders | CPT/HCPCS: 80048; 80061; 85025 ==

== ENCOUNTER 2025-01-02 06:18 | Day surgery (SDC) | payer BC, SELFPAY ==
[2025-01-02] VITALS (22 sets, daily range): BP systolic 99–142; BP diastolic 60–107; PULSE 64–89; RESP 16; TEMP 36–36.6; O2SAT 92–99; BMI 36.9
[2025-01-02] MEDS: LACTATED RINGERS 1000 ML 1,000 ML 100 ML IV ×2 (06:40→09:00)
[2025-01-02] MEDS: SODIUM CHLORIDE 0.9 % (FLUSH) 10 ML SYRINGE IVF ×2 (06:40→10:24)
[2025-01-02] MEDS: ACETAMINOPHEN 500 MG TABLET 1000 MG PO (06:45)
[2025-01-02] MEDS: OXYCODONE (CR) 10 MG TAB.ER.12H PO (06:45)
--- NOTE | 2025-01-02 07:13 | SUR.PREOP ---
TIME?OUT:?0716 PT/RN/MDA?VERIFICATION?OF?SURGICAL?SITE,?PROCEDURE,?AND?CONSENT OBTAINED?PRIOR?TO?INVASIVE?PROCEDURE.
[2025-01-02] MEDS: MIDAZOLAM HCL 1 MG/ML inj IVP (07:16)
[2025-01-02] MEDS: fentaNYL 100 MCG/2 ML inj IVP (07:16)
--- NOTE | 2025-01-02 07:18 | W.PM.H&PU ---
History & Physical Update History & Physical Update H&P Reviewed and patient assessed: No changes noted
[2025-01-02] MEDS: CEFAZOLIN 2 GM in 0.9 % SODIUM CHLORIDE Mini-bag 100 ML IVPB (07:50)
[2025-01-02] MEDS: TRANEXAMIC ACID 100 MG/ML INJ 1000 MG IV (07:50)
--- NOTE | 2025-01-02 08:59 | W.PM.NB ---
Nerve Block Nerve Block Time Seen by Provider: 07:20 Date Seen: 01/02/25 Type of block requested by surgeon for post-operative analgesia: CHRISTA/LFCN Side: right Time out performed: Yes Verification of patient name: Yes Verification of date of : Yes Site marking: site marked Name of person performing procedure: Kwan Continuous monitoring Was continuous monitoring of O2 sat, B/P, conveyor monitor, recorded every 15 minutes?: Yes Procedure Checklist: sterile prep, needles and gloves Ultrasound guided. Images saved: Yes Medications given in 5ml increments after negative aspiration: Ropivicaine %: 0.5 mL: 30 Needle gauge: 20 Precedex (mcg): 25 Patient tolerated procedure well: Yes Additional comments: Needle noted below psoas tendon needle noted adjacent to LFCN Block Charges Block Charge (with Pro Fee): Other Periph Nerve Block Use of Ultrasound Machine for Block: Yes- US Guidance/pain block
--- NOTE | 2025-01-02 08:59 | W.ANESCHARGE ---
Anesthesia Charges Start Date/Time Anesthesia Start Date: 01/02/25 Anesthesia Start Time: 07:39 Stop Date/Time Anesthesia Stop Date: 01/02/25 Anesthesia Stop Time: 10:06 Coding CPT Codes CPT Codes: ANESTH HIP ARTHROPLASTY - 91542 ([id number]) P2 - PATIENT W/MILD SYST DISEASE, QK - INSURANCE PROCESSING CLERK 2-4 CNCRNT ANES PROC, QX - SOFTBALL COACH SVC W/ MD MED DIRECTION
--- NOTE | 2025-01-02 09:18 | PM.ORPRC ---
Procedure Note Date of procedure: 01/02/25 Procedure: PREOPERATIVE DIAGNOSIS: 1. Right hip osteoarthritis, severe, primary POSTOPERATIVE DIAGNOSIS: 1. Right hip osteoarthritis, severe, primary PROCEDURE: 1. Right total hip arthroplasty-anterior approach 2. 82801 - intraoperative fluoroscopy up to 1 hour. SURGEON: Jesse Monet MD. SIGNALS COLLECTOR/ANALYST: Derrick Sweeney PA-C; FAB Diaz - Of note, a skilled admin assistant was critical for this case to aid in patient positioning, tissue retraction, limb manipulation/positioning, and closure. ANESTHESIA: General endotracheal anesthetic EBL: 250 mL IMPLANTS: DePuy J&J uncemented total hip [place] cup size 48, hole eliminator, +4 neutral liner Actis stem, standard offset, size 2 +1 mm ceramic 32mm head COMPLICATIONS: None evident INDICATIONS: The patient is a pleasant 41-year-old female who has experienced severe right hip pain and difficulty bearing weight. Workup included x-rays which revealed severe osteoarthrosis in the hip. Given the deformity, the dysfunction, and the pain, as well as the failure of nonoperative management, recommendation was made for surgery. FINDINGS: Full-thickness chondral loss diffusely throughout the femoral head. To lesser degree acetabulum. Large effusion upon entering the joint. Generalized synovitis noted throughout the hip capsule. DESCRIPTION OF PROCEDURE: Following a thorough discussion of risks, benefits, and alternatives consent was obtained and the right hip was marked. The patient was brought to the operating room and placed supine on the operating table. Induction of anesthesia was undertaken. 2 g IV Ancef and 1 g tranexamic acid was administered within 1 hr of incision preoperatively. Proper time-out was performed identifying proper patient, site, procedure. The operative extremity was prepped and draped in the appropriate sterile fashion using ChloraPrep after the patient was positioned on the [place] table with head in neutral alignment and all bony prominences well padded. C-arm fluoroscopic imaging was utilized to confirm proper pelvis rotation and position, and to get true AP films of both the contralateral left, and the affected right hip. This is for comparison. A longitudinal incision was made starting approximately 1 cm distal to the ASIS, and 3-4 cm lateral. The incision was extended distally aiming toward the lateral border the patella. Sharp incision through skin and bovie cautery through the subcutaneous tissue allowed identification of the TFL fascia. This was sharply divided, and the fascia bluntly released from the muscle fibers as we dissected medial. Upon coming to the medial border, we were able to retract the TFL laterally, and penetrated the deeper fascia and identify the crossing circumflex vessels. These were ligated/cauterized. The rectus was elevated from the capsule, and retractors placed laterally and medially along the femoral neck to help with visualization of the capsule. We then performed an inverted T capsulotomy. The capsule was tagged for later repair. Retractors were placed inside the capsule. The femoral neck was visualized after releasing medially down to the lesser trochanter, along the saddle laterally, and up onto the acetabulum. The femoral neck cut was made in line with our preoperative templating. The head was removed in a single piece, and sized. We turned our attention to acetabular preparation. Initially, the labrum was resected from around the perimeter, the pulvinar was excised, allowing us to visualize the false wall. We started the reaming with a 43 mm reamer. This was medialized down to the true wall. We then enlarged our reamers sequentially up to one size less than the selected cup size. We trialed at the same size and found it to have an excellent fit. The selected cup was then opened, inserted, and impacted in line with the goal of 40? of abduction, and 20-25? of anteversion. This was confirmed on C-arm fluoroscopic imaging to be in the appropriate/goal position. Once the cup was placed we placed a hole eliminator and a liner consistent with preop planning. Attention was turned to the femoral preparation. The limb was extended, externally rotated, and adducted. The posteromedial capsule was released, as retractors were placed allowing excellent access to the proximal femur. Initially a box folding machine operator was followed by canal finder followed by various broaches. We broached sequentially up to the size noted above, found it to have excellent rotational control, and trialing various heads and necks, revealed that appropriate neck offset, and the above noted head size provided the greatest stability, and christianity of length, and offset. C-arm fluoroscopic imaging confirmed position of the stem, as well as leg lengths, which were compared with the pre procedure all fluoroscopic images. Trial implants were removed, the real femoral stem inserted, as was the appropriate head. After reducing, the leg was placed through range of motion and stability was confirmed anterior, posterior, and lateral. A 3 min Betadine soak was then performed, and thorough irrigation with normal saline followed. Closure of the capsule was performed with #1 PDS. Bleeding was confirmed to be controlled at this stage, and the TFL fascia was closed with #0 strata fix. Subcutaneous, and subcuticular closure was performed with 2-0 Vicryl and 4-0 Monocryl, respectively. Dressings were applied, and the patient was awoken from anesthesia and transferred the PACU in stable condition. A skilled admin assistant was critical for this case to aid in patient positioning, tissue retraction, acetabular and proximal femoral exposure, limb manipulation/positioning, dislocation/relocation, patient safety, and closure. PLAN: 1. Weight bear as tolerated operative extremity. 2. 23 hr perioperative antibiotics. 3. Ice. 4. PT/OT consults for ambulation assistance/mobility education. 5. Social work consult for discharge planning. 6. DVT prophylaxis with at SCDs and Xarelto x5 days followed by aspirin for a total of 1 month..
--- NOTE | 2025-01-02 10:07 | W.ANESCHARGE ---
Anesthesia Charges Start Date/Time Anesthesia Start Date: 01/02/25 Anesthesia Start Time: 07:39 Stop Date/Time Anesthesia Stop Date: 01/02/25 Anesthesia Stop Time: 10:06 Coding CPT Codes CPT Codes: ANESTH HIP ARTHROPLASTY - 41027 ([id number]) P2 - PATIENT W/MILD SYST DISEASE, QK - WELL PULLER 2-4 CNCRNT ANES PROC, QX - METAL WINDOW FRAME MAKER SVC W/ MD MED DIRECTION
[2025-01-02] MEDS: fentaNYL 100 MCG/2 ML inj 50 MCG IVP ×2 (10:10→10:20)
[2025-01-02] MEDS: HYDROmorphone 0.5 mg/0.5 ml inj IVP (10:34)
[2025-01-02] MEDS: LACTATED RINGERS 500 ML 500 ML 125 ML IV (11:15)
[2025-01-02] MEDS: OXYCODONE 5 MG TABLET PO (11:20)
[2025-01-02] MEDS: hydrOXYzine pamoate 25 MG CAPSULE PO (11:54)
[2025-01-02] MEDS: IBUPROFEN 200 MG TABLET 400 MG PO (13:00)
[2025-01-02] MEDS: ONDANSETRON 2 MG/ML inj 4 MG IVP (13:50)
== END 2025-01-02 14:55 | disposition home or self-care (01) ==
LOC: OR 06:19
PROVIDERS: PCP Family Medicine; Visit Provider Orthopaedic Surgery Sports Medicine
PROC: (CPT 27130; principal; 2025-01-02 07:30)
DX: M16.11 Unilateral primary osteoarthritis, right hip (principal); G89.18 Other acute postprocedural pain
CPT/HCPCS: 27130; 01214; 36415; 64450; 73501; 76942; 86850; 86900; 86901; 97110; 97116; 97161; 97165; 97535; A9270; C1776; J0330; J0690; J1100; J1171; J1630; J2250; J2405; J2704; J2710; J2795; J3010; J3490; J7120

== ENCOUNTER 2025-02-06 07:30 | Outpatient (RCR) | payer BC, SELFPAY | END 2025-02-27 09:43 | disposition home or self-care (01) | PROVIDERS: PCP Family Medicine; Visit Provider Orthopaedic Surgery Sports Medicine | DX: M16.11 Unilateral primary osteoarthritis, right hip (principal); Z96.641 Presence of right artificial hip joint; Z51.89 Encounter for other specified aftercare | CPT/HCPCS: 97110; 97161 ==

== ENCOUNTER 2025-05-05 21:11 | Emergency (ER) | payer BC, SELFPAY ==
[2025-05-05 21:19] VITALS: BP 166/85; PULSE 111; RESP 18; TEMP 36.3; O2SAT 99; BMI 36.9
--- NOTE | 2025-05-05 21:23 | CRLHL7_ITS ---
For Patients: As a result of the Cures Act, medical imaging exams and procedure reports are released immediately into your electronic medical record. You may view this report before your referring provider. If you have questions, please contact your health care provider. Indication: Trauma. Kickball jammed into pinky. Technique: Left 5th finger 3 views. Comparison: None. Findings: Bones: There is dorsal and ulnar dislocation of the middle phalanx with respect to the proximal phalanx. No definite fracture. No suspicious osseous lesion. Soft tissues: Soft tissue swelling of the 5th digit. Impression: Dorsal and ulnar dislocation of the middle phalanx with respect to the proximal phalanx of the 5th digit. No definite fracture. Dictated by Ailyn Givens MD @ 05/05/2025 10:22:05 PM (Electronically Signed)
--- NOTE | 2025-05-05 22:05 | ED.GENADULT ---
HPI - General Adult General Chief complaint: Extremity Pain/Injury, Upper Stated complaint: L pinky injury/broken Time Seen by Provider: 05/05/25 21:38 History of Present Illness HPI narrative: 50-year-old female with a past medical history of right hip replacement, hyperinsulinism, depression, hypertension, SI joint pain presenting to the ER today with an injury to her left 5th finger (pinky finger). She was playing kickball this evening when a ball came flying at her in jammed her pinky finger. She suffered immediate onset of pain and deformity with some lateral angulation of the finger. No associated numbness. Some pain radiates from her 5th finger into the 4th digit of her left hand. She has no previous injuries to her finger. Related Data Home Medications ?Medication ?Instructions ?Recorded ?Confirmed cholecalciferol (vitamin D3) 25 1,000 unit PO DAILY 09/18/22 02/07/25 mcg (1,000 unit) capsule Previous Rx's ?Medication ?Instructions ?Recorded semaglutide (weight loss) 2.4 2.4 mg (0.75 mL) subcut Q2W #3 mL 03/06/25 mg/0.75 mL subcutaneous pen injector amlodipine 5 mg tablet 5 mg PO QDAY #90 tabs 04/03/25 lisinopril 10 1 tab PO QDAY #90 tabs 04/03/25 mg-hydrochlorothiazide 12.5 mg tablet Allergies Allergy/AdvReac Type Severity Reaction Status Date / Time No Known Drug Allergies Allergy Verified 05/05/25 21:22 [facility] Medical History (Updated 05/05/25 @ 22:22 by Bashir Izaguirre MD) Primary hypertension ?I10 - Essential (primary) hypertension (ICD-10) Keratoconus ?H18.609 - Keratoconus, unspecified, unspecified eye (ICD-10) Post menopausal syndrome ?N95.1 - Menopausal and female climacteric states (ICD-10) Vitamin D deficiency ?E55.9 - Vitamin D deficiency, unspecified (ICD-10) Major depression, single episode ?F32.9 - Major depressive disorder, single episode, unspecified (ICD-10) Urge incontinence of urine ?N39.41 - Urge incontinence (ICD-10) Sialolithiasis ?K11.5 - Sialolithiasis (ICD-10) Hyperinsulinism (2011) ?E16.1 - Other hypoglycemia (ICD-10) History of herpes genitalis ?Z86.19 - Personal history of other infectious and parasitic diseases (ICD-10) History of gestational diabetes mellitus (GDM) ?Z86.32 - Personal history of gestational diabetes (ICD-10) Cyst of left ovary ?N83.202 - Unspecified ovarian cyst, left side (ICD-10) Acute gallstone pancreatitis ?K85.10 - Biliary acute pancreatitis without necrosis or infection (ICD-10) Surgical History (Updated 01/06/25 @ 12:11 by Gregoria Stone) History of total right hip replacement (01/02/25) ?Z96.641 - Presence of right artificial hip joint (ICD-10) Status post laparoscopic cholecystectomy (04/2018) ?Z90.49 - Acquired absence of other specified parts of digestive tract (ICD-10) History of tubal ligation (2015) ?Z98.51 - Tubal ligation status (ICD-10) History of knee surgery (1995) ?Z98.890 - Other specified postprocedural states (ICD-10) History of 3 sections (2001) ?Z98.891 - History of uterine scar from previous surgery (ICD-10) Family History Father High blood pressure Family/Other Diabetes Social History (Updated 12/07/24 @ 08:24 by Christine Robertson ~ A, A) Narrative: Lives with boyfriend of four years, they have a total of seven children between them. medicine teacher. Nonsmoker. What is your current living situation?: I presently have a place to live Problems where you live: no known problems In the past 12 months, utilities in danger of being shut off: no In past 12 months, lack of transportation kept you from medical appts, meetings, work, or getting things needed for daily living: no In the past 12 mos, have been you worried that your food would run out before you had money to buy more?: never true In the past 12 mos, the food you bought just didn't last and you didn't have money to buy more?: never true Smoking Status: Never smoker Do you use any of these nicotine containing products: None Second hand tobacco smoke exposure: No How often do you have a drink containing alcohol: 2-4 times a month Alcohol type: hard liquor How many standard drinks containing alcohol do you have on a typical day: 1 or 2 How often do you have six or more drinks on one occasion: Never AUDIT-C Alcohol total score: 2 Non-prescribed substance use: denies use Caffeine: Yes How often does anyone, including family, friends and others, physically hurt you: never How often does anyone, including family, friends and others, insult or talk down to you: never How often does anyone, including family, friends and others, threaten you with harm: never How often does anyone, including family, friends and others, scream or curse at you: never Are you using contraception or practicing any form of control: No service: No Exam Narrative: Exam Narrative: Constitutional: Appears well-developed and well-nourished. Active. Very uncomfortable, but Non-toxic appearing. HENT: Head: Atraumatic. No signs of injury. Nose: No nasal discharge. Mouth/Throat: Mucous membranes are moist. Pharynx is normal. Tonsils symmetric. Uvula midline. Airway patent. Eyes: Conjunctivae normal and EOM are normal. Pupils are equal, round, and reactive to light. Right eye exhibits no discharge. Left eye exhibits no discharge. No icterus. Neck: Normal range of motion. Neck supple. No adenopathy. No stridor. Cardiovascular: Normal rate and regular rhythm. No murmur heard. No murmurs, rubs, or gallops. Brisk capillary refill Pulmonary/Chest: Effort normal. No stridor. No respiratory distress. No wheezes.No rhonchi. No rales. Musculoskeletal: Normal except for left hand, 5th digit. Inspection of left hand 5th digit reveals tenderness and deformity with an apparent dorsal/lateral dislocation of the PIP joint. She does have intact radial and ulnar digital nerve sensory function. Intact distal cap refill. Range of motion in the 5th digit is limited by pain. Neurological: Alert. Normal strength. No cranial nerve deficit or sensory deficit. Coordination normal. GCS eye subscore is 4. GCS verbal subscore is 5. GCS motor subscore is 6. Skin: Skin is warm. No rash noted. Const: Vital Signs, click to edit/add: Vital Signs - 24 hr 05/05/25 21:19 Temperature 97.4 F L Pulse Rate [Right Pulse Oximeter] 111 H Respiratory Rate 18 Blood Pressure [Le ft Upper Arm] 166/85 H Pulse Oximetry 99 Oxygen Delivery Me thod Room Air Course Vital Signs Vital signs: Initial Vital Signs Temperature 97.4 F L 05/05/25 21:19 Temperature Source Temporal Artery Scan 05/05/25 21:19 Pulse Rate 111 H 05/05/25 21:19 Pulse Rhythm Regular 05/05/25 21:19 Pulse Strength 3+ Normal 05/05/25 21:19 Respiratory Rate 18 05/05/25 21:19 Blood Pressure 166/85 H 05/05/25 21:19 Blood Pressure Mean 112 H 05/05/25 21:19 Blood Pressure Position Sitting 05/05/25 21:19 Pulse Oximetry 99 05/05/25 21:19 Oxygen Delivery Method Room Air 05/05/25 21:19 Vital Signs Temperature 97.4 F L 05/05/25 21:19 Pulse Rate 111 H 05/05/25 21:19 Respiratory Rate 18 05/05/25 21:19 Blood Pressure 166/85 H 05/05/25 21:19 Pulse Oximetry 99 05/05/25 21:19 Oxygen Delivery Method Room Air 05/05/25 21:19 Temperature 97.4 F L 05/05/25 21:19 Pulse Rate 111 H 05/05/25 21:19 Respiratory Rate 18 05/05/25 21:19 Blood Pressure 166/85 H 05/05/25 21:19 Pulse Oximetry 99 05/05/25 21:19 Oxygen Delivery Method Room Air 05/05/25 21:19 Medications Administered Medications: Discontinued Medications Generic Name Dose Route Start Last Admin Trade Name Freq PRN Reason Stop Dose Admin Bupivacaine HCl 30 ml 05/06/25 00:41 05/05/25 22:30 Bupivacaine 0.25% 30 Ml INJECTION 05/06/25 00:42 30 ml ONCE ONE Administration Medical Decision Making [facility] Narrative Medical decision making narrative: Very pleasant 50-year-old female presenting to the ER today with an accidental traumatic injury to her left hand 5th digit after she was playing ball and jammed her finger against a kickball. Clinical exam and x-rays concerning for PIP joint dislocation. After digital block I was able to gently manipulate it dislocated PIP joint back into anatomic alignment. Subsequently we were able to flex and extend that joint. She was placed into an Alumafoam splint for immobilization. She and her were comfortable plan for discharge home. Imaging Data XR finger: Attestation: I have reviewed the pertinent imaging results. My impression: PIP joint dislocation is dorsal and lateral. No definite fracture. Radiologist's impression: Impression: Dorsal and ulnar dislocation of the middle phalanx with respect to the proximal phalanx of the 5th digit. No definite fracture. Discharge Plan Discharge Clinical Impression: Dislocation of finger, closed Patient Disposition: Home, Self-Care Condition: Stable Instructions: Finger Dislocation (ED) Additional Instructions: As we discussed, wear the splint for the next couple of days. On Thursday can take the splint off and start doing gentle range of motion with your finger. Your finger will likely be sore and stiff for a few days and then will get gradually better. If it is not completely healed within 3-5 days, please follow-up with the [facility] (or an orthopedist of your choice). To schedule an orthopedic clinic follow-up visit you can call [phone]. Use the prescription pain killer if needed for pain. Be careful because prescription pain killers cause dizziness, drowsiness, constipation, and can be addictive. If the pain is only mild you can treat the pain with [id number] medications. Prescriptions: No Action cholecalciferol (vitamin D3) 25 mcg (1,000 unit) capsule 1,000 unit PO DAILY semaglutide (weight loss) 2.4 mg/0.75 mL pen injector 2.4 mg subcut Q2W Qty: 3 2RF lisinopril-hydrochlorothiazide 10-12.5 mg tablet 1 tab PO QDAY Qty: 90 2RF amlodipine 5 mg tablet 5 mg PO QDAY Qty: 90 2RF Follow Up/Referrals: Daniele Hernandez MD [Primary Care Provider, Family Practice] Stand Alone [facility]: [facility] Info Instructions Procedures Orthopedic Joint Reduction Left hand, 5th digit PIP joint dislocation: Side: left Joint Reduction Location: finger Manipulation used?: Yes Analgesia: other ( After sterile prep with Betadine we infiltrated 3 mL of, 0.25% bupivacaine. Aspiration confirm no intravascular injection. Good anesthesia achieved) Technique used: direct manipulation Post-reduction neuro vascular exam: intact Post Reduction X-Ray Obtained: No Splint Applied: Yes (Alumafoam splint applied by nursing.) Patient Tolerated Procedure: well
[2025-05-05] MEDS: BUPIVACAINE 0.25% 30 ML INJECTION (22:30)
--- OUTSIDE RECORDS SUMMARY | 2025-05-05 22:30 | XMS_ITS | Clinical Summary ---
Author Organization [facility] Address [address] [place] [id number] Care Team Providers Care Ammonia Refrigeration Worker Name Role Phone Pcp, No Primary Care Provider Unavailabl e Allergies No known active allergies Medications No known medications Active Problems Problem Noted Date Diagnosed Date Antepartum placenta previa w ithout hemorrhage in second trimester 06/30/2015 Overview (06/30/2015): Complete FINDINGS: Sonographic imaging demonstrates a single [...] w ithout hemorrhage in second trimester 06/25/2015 Overview (07/02/2015): Complete previa. Would recommend ultrasound in last month of consider delivery at 36-37 weeks 37 weeks is stable and no bleeding. Planning repeat Hyperinsulinemia 12/30/2011 Pre-diabetes 12/15/2008 Overview (04/02/2015): In regards to her prediabetes, we discussed [...] in six months' time. Unspecified hypothyroidism 11/24/2008 Overview (04/02/2015): ASSESSMENT AND PLAN: A 39-year-old female with [...] The likelihood of this is low. 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 Gender Identity Not on file Sexual Orientation Not on file Occupation Industry Job Start Date Job End Date Not on file Not on file Not on file Not on file Obstetrics History Para Term [...] 80 08/05/2021 9:45 AM CDT Temperature 36.8 C (98.3 F) 08/05/2021 9:05 AM CDT Respiratory Rate 18 06/25/2015 3:21 PM CDT Oxygen Saturation 98% 08/05/2021 9:05 AM CDT Inhaled Oxygen Concentration - - Weight 110.7 kg (244 lb) 06/25/2015 3:21 PM CDT Height 162 cm (5' 3.78) 04/02/2015 8:27 AM CDT Body Mass Index 42.17 04/02/2015 8:27 AM CDT Plan of Treatment Health Maintenance Due Date Last Done Comments Depression screening for age 12+ 1988 BMI (ht and wt on same day) for age 18+ 1994 Hepatitis B series for 19+ (1 of 3 - 19+ 3-dose series) 1995 Colonoscopy through age 75 2021 Lipids for age 45-75 2021 12/26/2013, 12/26/2011, 08/17/2009, Additional history exists Mammogram for age 45-75 2021 COVID-19 vaccine series (2023- season) 2024 06/26/2021, 06/05/2021 Influenza Vaccine (Season Ended) 2025 Pap test for age 21-65 08/21/2025 , 08/21/2022, 01/27/2018, Additional history exists Tetanus booster 09/17/2025 09/17/2015, 02/22/2010 HIV for age 15-65 Completed 2015, , 12/20/2010 Hepatitis C screening for age 18-79 Completed 2015, 05/31/2012 ([place]) Tdap Completed 09/17/2015, 02/22/2010 Pneumococcal series for age 6-49 Aged Out No longer eligible based on patient's age to complete this topic Procedures Procedure Name Priority Date/Time Associated Diagnosis Comments HPV HIGH RISK Routine 08/21/2022 11:00 AM CDT ANTI HIV 1/2 Routine 2015 9:33 AM CDT (HC) ANTI HCV Routine 2015 9:33 AM CDT (HC) LIPID PANEL Routine 12/26/2013 9:01 AM EMAIL MARKETING COORDINATOR Screening cholesterol level from Last 3 Months or Most Recently Relevant to Health Maintenance Results * HPV HIGH RISK (08/21/2022 11:00 AM CDT) TYPE 16 Negative Negative 08/27/2022 2:27 PM CDT [facility] TYPE 18 Negative Negative 08/27/2022 2:27 PM CDT [facility] OTHER HIGH RISK TYPES Negative Negative 08/27/2022 2:27 PM CDT [facility] Other (Cervical) 08/21/2022 11:00 AM CDT 08/26/2022 2:30 PM CDT Narrative [facility] - 08/27/2022 2:27 PM CDT HPV types 16, 18, 31, 33, 35, 39, 45, 51, 52, 56, 58, 59, 66 and 68 DNA were undetectable or below the pre-set threshold. Methodology: Deepa Ele 4800 HPV Test Eliz Goins TIN CAN LABORER MICROBIOLOGY Final Res ult Performing Organization Address City/[facility]/ZIP Co de Phone Number [facility] [address] [place] [address], [place] * ANTI HCV (2015 9:33 AM CDT) Pathologist [facility] HEPATITIS C ANTIBODY Non-Reacti ve Non-Reacti ve 2015 5:02 PM CDT [facility] Blood specimen (specimen) BLOOD SPECIMEN / Unknown Venipuncture / Unknown 2015 9:33 AM CDT 2015 9:33 AM CDT Narrative [facility] - 2015 5:02 PM CDT Antibodies to HCV not detected; does not exclude the possibility of exposure to HCV. Cindy DALEY SEND OUTS Final R esult [facility] [address] [place] [address], [place] * ANTI HIV 1/2 (2015 9:33 AM CDT) HIV-1/HIV-2 ANTIBODY Non-Reacti ve Non-Reacti ve 2015 4:29 PM CDT [facility] Blood specimen (specimen) BLOOD SPECIMEN / Unknown Venipuncture / Unknown 2015 9:33 AM CDT 2015 9:33 AM CDT Narrative [facility] - 2015 4:29 PM CDT HIV-1 p24 and HIV-1/HIV-2 Ab not detected Cindy DALEY SEND OUTS Final R es[facility] [address] [place] [address], * (ABNORMAL) LIPID PANEL (12/26/2013 9:01 AM EMAIL MARKETING COORDINATOR) CHOLESTEROL,TOTAL 153 100 - 199 mg/dL 12/26/2013 9:52 AM [facility] TRIGLYCERIDES 207(H) <150 mg/dL 12/26/2013 9:52 AM [facility] HDL CHOLESTEROL 43 >40 mg/dL 4 9:52 AM [facility] NON-HDL CHOLESTEROL 110 <145 mg/dl 12/26/2013 9:52 AM [facility] CHOL/HDL RATIO 3.56 <4.50 12/26/2013 9:52 AM [facility] LDL CHOLESTEROL 69 <=130 mg/dL 12/26/2013 9:52 AM [facility] PATIENT STATUS FASTING 12/26/2013 9:52 AM [facility] Blood specimen (specimen) BLOOD SPECIMEN / Unknown Venipuncture / Unknown 12/26/2013 9:01 AM EMAIL MARKETING COORDINATOR 12/26/2013 9:01 AM EMAIL MARKETING COORDINATOR Cindy DALEY CHEMISTRY Final R esult [facility] [address] [place] [address] from Last 3 Months or Most Recently Relevant to Health Maintenance Insurance [employer] [place] [id number] [id number] [place] [id number] Care Teams Ammonia Refrigeration Worker Relationship Specialty Start Date End Date Pcp, No . PCP - General 10/08/18
== END 2025-05-05 22:31 | disposition home or self-care (01) ==
LOC: ED 22:28
PROVIDERS: Emergency Provider Emergency Medicine; PCP Family Medicine
DX: S63.287A Dislocation of proximal interphalangeal joint of left little finger, initial encounter (principal); W21.09XA Struck by other hit or thrown ball, initial encounter; Y93.69 Activity, other involving other sports and athletics played as a team or group
CPT/HCPCS: 26770; 73140; 99282; 99284; J0665